=== PATIENT | male | born 1960 | race Caucasian/White ===

== ENCOUNTER 2016-11-03 08:26 | Emergency (ER) | payer OTHER ==
[~2016-11-03] VITALS: Ht 170.2 cm; Wt 68.2 kg
[2016-11-03 08:38] VITALS: BP 142/76
[2016-11-03] MEDS ORDERED: AMLO5TAB2 (08:42)
[2016-11-03] MEDS ORDERED: ASPI81TA85 PO (08:42)
[2016-11-03] MEDS ORDERED: MICA80TA (08:42)
[2016-11-03] MEDS ORDERED: ADACEL/BOOSTRIX VACCINE (DIPHTH/PERTUSS/ACELL/TETANUS)0.5ML SYR (90715) IM ONE (09:30)
[2016-11-03] MEDS ORDERED: KEFL500C17 PO (09:39)
== END 2016-11-03 10:00 | disposition home or self-care (01) ==
LOC: M ED 08:26
DX: T24.131A Burn of first degree of right lower leg, initial encounter (principal); T31.0 Burns involving less than 10% of body surface; X19.XXXA Contact with other heat and hot substances, initial encounter; Y92.89 Other specified places as the place of occurrence of the external cause; Y93.9 Activity, unspecified; Y99.8 Other external cause status; I10 Essential (primary) hypertension; Z87.891 Personal history of nicotine dependence

== ENCOUNTER → 2017-07-04 | Outpatient (CLI) | payer OTHER | LOC: M RAD 08:30 | DX: R06.00 Dyspnea, unspecified (principal) ==

== ENCOUNTER → 2017-08-28 | Outpatient (CLI) | payer OTHER ==
[~2017-08-28] MED LIST: E-Z-GAS II EFFERVESCENT PACKET (SODIUM BICARB./CITRIC ACID/SIMETHICONE) As Ordered; E-Z-HD 98% w/w 340GM SUSP BTL As Ordered; E-Z-PAQUE 96% w/w SUSP 176GM BTL As Ordered
== END ==
LOC: M RAD 09:58
DX: K21.9 Gastro-esophageal reflux disease without esophagitis (principal)
CPT/HCPCS: 74220

== ENCOUNTER → 2018-07-07 | Outpatient (CLI) | payer OTHER ==
[~2018-07-07] MED LIST changes: +AMLO5TAB6; +ASPI81TA85 PO; -E-Z-GAS II EFFERVESCENT PACKET (SODIUM BICARB./CITRIC ACID/SIMETHICONE) As Ordered; -E-Z-HD 98% w/w 340GM SUSP BTL As Ordered; -E-Z-PAQUE 96% w/w SUSP 176GM BTL As Ordered; +KEFL500C17 PO; +MICA80TA
--- NOTE | 2018-07-07 08:03 | REP ---
Clinical: Lung screening. History nicotine dependence Comparison: 07/04/2017 Technique: Axial low-dose noncontrast images from the thoracic inlet to the upper abdomen using lung screening technique. Findings: The lung francis are well-aerated. No consolidation, significant nodule or mass lesion is appreciated. No pleural effusion/reaction or pneumothorax. Tracheobronchial tree is patent. Mediastinum demonstrates mild atherosclerotic changes of the coronary arteries without cardiomegaly. Impression: Lung-RADS category I. No nodule or suspicious abnormality. Electronically Signed by Pranav Merchant MD 07/07/2018 07:56 A
== END ==
LOC: M RAD 07:30
PROVIDERS: ATTEND Physician Assistant
DX: Z87.891 Personal history of nicotine dependence (principal)

== ENCOUNTER 2019-03-21 23:16 | Emergency (ER) | payer OTHER ==
[~2019-03-21] VITALS: Ht 170.2 cm; Wt 80.9 kg
[2019-03-21] MEDS ORDERED: PANT40TA3 (23:24)
[2019-03-21] MEDS ORDERED: LABE20TAB (23:24)
[2019-03-21] MEDS ORDERED: HYDR25TAB (23:24)
[2019-03-21] MEDS ORDERED: KETOROLAC 60 MG/2 ML VIAL (J1885) IM ONE (23:45)
[2019-03-21] MEDS ORDERED: OSELTAMIVIR PHOSPHATE 75 MG CAP (TAMIFLU) PO ONE (23:45)
[2019-03-22] VITALS: BP 121/66
[2019-03-22] MEDS ORDERED: NS 1,000 ML IV ONE
[2019-03-22 00:11] LABS: BASO # 0.1 10^3/uL (0.0-0.2); BASO % 0.6 % (0.0-1.0); EOS # 0.3 10^3/uL (0.0-0.5); HEMOGLOBIN 13.6 g/dl (13.5-17.5); LYMPH # 2.8 10^3/uL (1.5-5.0); MEAN CORPUSCULAR HEMOGLOBIN 28.4 pg (27.0-33.0); MEAN CORPUSCULAR HGB CONC 33.2 g/dl (32.0-36.5); MEAN CORPUSCULAR VOLUME 85.6 fl (80.0-96.0); MONO % 10.2 % (0.0-5.0); NEUTROPHILS # 5.7 10^3/uL (1.5-8.5); NEUTROPHILS % 57.5 % (36.0-66.0); PLATELET COUNT, AUTOMATED 312 10^3/uL (150-450); RED BLOOD COUNT 4.79 10^6/uL (4.30-6.10); WHITE BLOOD COUNT 9.9 10^3/uL (4.0-10.0)
[2019-03-22 00:27] LABS: ALBUMIN 3.9 GM/DL (3.2-5.2); ALT/SGPT 30 U/L (12-78); BILIRUBIN,DIRECT 0.1 MG/DL (0.0-0.2); BILIRUBIN,TOTAL 0.5 MG/DL (0.2-1.0); BLOOD UREA NITROGEN 15 MG/DL (7-18); CALCIUM LEVEL 8.6 MG/DL (8.5-10.1); CARBON DIOXIDE LEVEL 24 MEQ/L (21-32); CHLORIDE LEVEL 95 MEQ/L (98-107); CREATININE FOR GFR 0.95 MG/DL (0.70-1.30); GLOMERULAR FILTRATION RATE > 60.0 (>56); GLUCOSE, FASTING 110 MG/DL (70-100); LIPASE 84 U/L (73-393); POTASSIUM SERUM 3.5 MEQ/L (3.5-5.1); SODIUM LEVEL 132 MEQ/L (136-145); TOTAL PROTEIN 7.4 GM/DL (6.4-8.2)
[2019-03-22] MEDS ORDERED: ISOVUE-370 76% 100ML VIAL (Q9967) As Ordered ONE (00:44)
[2019-03-22] MEDS ORDERED: MORPHINE 10 MG/ML 1ML VIAL (J2270) IV ONE ×2 (01:15)
--- NOTE | 2019-03-22 01:18 | REPVR ---
PROCEDURE INFORMATION: Exam: CT Lumbar Spine Without Contrast Exam date and time: 03/22/2019 12:55 AM Age: 58 years old Clinical indication: Injury or trauma; Fall; Initial encounter; Blunt trauma (contusions or hematomas); Prior surgery; Surgery date: 6+ months; Surgery type: L4-s1 fusion TECHNIQUE: Imaging protocol: Computed tomography images of the lumbar spine without contrast. Radiation optimization: All CT scans at this facility use at least one of these dose optimization techniques: automated exposure control; mA and/or kV adjustment per patient size (includes targeted exams where dose is matched to clinical indication); or iterative reconstruction. COMPARISON: No relevant prior studies available. FINDINGS: Vertebrae: Prior posterior transpedicular fusion at L4-L5 and L5-S1 with L5-S1 laminectomies. Minor grade 1 and cysts at L5-S1. No compression fracture or bone lesions. Discs/Spinal canal/Neural foramina: Minor grade 1 retrolisthesis with disc space narrowing L3-L4. L4-L5 and L5 disc spaces are fused. Foraminal stenosis at L3-L4. Other bones/joints: Hardware is intact. Soft tissues: Unremarkable. IMPRESSION: 1. No acute fracture or bone lesions. 2. Previous lumbosacral fusion. Electronically signed by: Denton Bobby On 03/22/2019 01:18:01 AM
--- NOTE | 2019-03-22 01:25 | REPVR ---
PROCEDURE INFORMATION: Exam: CT Abdomen And Pelvis With Contrast Exam date and time: 03/22/2019 12:55 AM Age: 58 years old Clinical indication: Injury or trauma; Fall; Initial encounter; Blunt; Generalized; Injury details: Fell down stairs hitting back; Prior surgery; Surgery type: L4-s1 fusion TECHNIQUE: Imaging protocol: Computed tomography of the abdomen and pelvis with intravenous contrast. Radiation optimization: All CT scans at this facility use at least one of these dose optimization techniques: automated exposure control; mA and/or kV adjustment per patient size (includes targeted exams where dose is matched to clinical indication); or iterative reconstruction. Contrast material: ISOVUE 370; Contrast volume: 100 ml; Contrast route: IV; COMPARISON: No relevant prior studies available. FINDINGS: Liver: Normal. No mass. Gallbladder and bile ducts: There has been prior cholecystectomy. mild extrahepatic biliary ductal dilation with common bile duct measuring 11 mm. No obstructing calculus or mass. Pancreas: Normal. No ductal dilation. Spleen: Normal. No splenomegaly. Adrenals: Normal. No mass. Kidneys and ureters: Normal. No hydronephrosis. Stomach and bowel: There is mild colonic diverticulosis without evidence of diverticulitis. The small bowel is unremarkable. Appendix: No evidence of appendicitis. Intraperitoneal space: Unremarkable. No free air. No significant fluid collection. Vasculature: Unremarkable. No abdominal aortic aneurysm. Lymph nodes: Unremarkable. No enlarged lymph nodes. Bladder: Unremarkable as visualized. Reproductive: Unremarkable as visualized. Bones/joints: Changes of prior lumbosacral fusion. There are degenerative changes in the spine and pelvis. No acute fracture. Soft tissues: 3.5 x 12.3 x 8.4 cm subcutaneous hematoma in the left buttock with overlying subcutaneous edema. No contrast extravasation or foreign body in the hematoma. IMPRESSION: 1. Large subcutaneous hematoma in the left buttock. 2. Colonic diverticulosis without evidence of diverticulitis. Electronically signed by: Denton Bobby On 03/22/2019 01:25:18 AM
== END 2019-03-22 01:44 | disposition home or self-care (01) ==
LOC: M ED 23:16
DX: S30.1XXA Contusion of abdominal wall, initial encounter (principal); F10.120 Alcohol abuse with intoxication, uncomplicated; W10.8XXA Fall (on) (from) other stairs and steps, initial encounter; Y92.098 Other place in other non-institutional residence as the place of occurrence of the external cause; I10 Essential (primary) hypertension; K21.9 Gastro-esophageal reflux disease without esophagitis; Z79.899 Other long term (current) drug therapy; Z79.82 Long term (current) use of aspirin; Z98.1 Arthrodesis status
CPT/HCPCS: 72131; 74177; 80048; 80076; 83690; 85025; 96361; 96374; 96376; 99284; G0480; J2270; Q9967

== ENCOUNTER → 2019-04-01 | Outpatient (CLI) | payer OTHER ==
[~2019-04-01] MED LIST changes: +HYDR25TAB; +LABE20TAB; +PANT40TA3
--- NOTE | 2019-04-02 09:15 | REPVR ---
PROCEDURE INFORMATION: Exam: CT Lumbar Spine Without Contrast Exam date and time: 04/01/2019 11:00 AM Age: 58 years old Clinical indication: Low back pain; Additional info: Low back pain and large hematoma TECHNIQUE: Imaging protocol: Computed tomography images of the lumbar spine without contrast. Radiation optimization: All CT scans at this facility use at least one of these dose optimization techniques: automated exposure control; mA and/or kV adjustment per patient size (includes targeted exams where dose is matched to clinical indication); or iterative reconstruction. COMPARISON: CT Spine, lumbar w/o contrast 03/22/2019 12:49 AM FINDINGS: Vertebrae: There are vertical rods and pedicle screws at L4, L5 and S1. There is intervertebral spacer material. There corresponding laminectomy defects at L4/5 and L5/S1. There is 5 mm of grade 1 anterolisthesis of L5 with respect to S1. Normal vertebral body alignment is otherwise preserved. Discs/Spinal canal/Neural foramina: At L2/3, shallow disc bulging and mild facet hypertrophy contribute to mild canal stenosis. There is mild bilateral neural foraminal narrowing. At L3/4, shallow disc bulging and mild to moderate facet hypertrophy contribute to moderate canal stenosis and mild to moderate bilateral neural foraminal narrowing. Soft tissues: There is non-specific edema within the posterior paraspinal subcutaneous fat. IMPRESSION: 1. Changes reflecting L4-S1 fusion. No acute abnormality. 2. Degenerative disc disease and spondylosis. At L3/4, changes contribute to moderate acquired canal stenosis and [id number] bilateral neural foraminal narrowing. Electronically signed by: Paola Barcenas On 04/02/2019 09:15:46 AM
== END ==
LOC: M RAD 10:41
PROVIDERS: ATTEND Family Medicine
DX: M54.5 Low back pain (principal); W19.XXXA Unspecified fall, initial encounter

== ENCOUNTER → 2020-07-24 | Outpatient (CLI) | payer OTHER ==
[~2020-07-24] MED LIST changes: +AMLO1TAB24; -AMLO5TAB6; -ASPI81TA85 PO; +ASPI81TA86 PO; +HYDR-3490; -HYDR25TAB; +PANT40TA29; -PANT40TA3
--- NOTE | 2020-07-24 11:14 | REP ---
INDICATION: NICOTINE DEPENDENCE COMPARISON: 07/22/2019 TECHNIQUE: Axial noncontrast images from the thoracic inlet to the upper abdomen using low-dose lung screening technique (LDCT). FINDINGS: The lung francis are well aerated and relatively symmetric/clear. Minimal apical scarring is again noted and stable. No acute consolidation, suspicious nodule or mass lesion appreciated. Tracheobronchial tree is patent. No effusion. No pneumothorax. IMPRESSION: Lung-RADS category 1. No suspicious nodule or mass lesion. Management recommendations include annual low-dose CT surveillance. <Electronically signed by Pranav Merchant > 07/24/20 1112
== END ==
LOC: M RAD 09:47
PROVIDERS: ATTEND Physician Assistant
DX: Z12.2 Encounter for screening for malignant neoplasm of respiratory organs (principal); Z87.891 Personal history of nicotine dependence

== ENCOUNTER → 2021-08-14 | Outpatient (CLI) | payer OTHER | LOC: M RAD 10:02 | PROVIDERS: ATTEND Physician Assistant | DX: Z87.891 Personal history of nicotine dependence (principal) ==

== ENCOUNTER 2021-12-15 11:10 | Emergency (ER) | payer OTHER ==
[2021-12-15] MEDS ORDERED: AMLO1TAB25 (11:34)
[2021-12-15] MEDS ORDERED: ROSU20TA5 (11:34)
[2021-12-15] MEDS ORDERED: KETOROLAC 30 MG/ML 1ML VIAL IM ONE (13:25)
[2021-12-15] MEDS ORDERED: KETO10TAB PO (14:58)
[2021-12-15] MEDS ORDERED: METH-1164 PO (14:58)
[2021-12-15 15:04] VITALS: BP 144/78
== END 2021-12-15 15:07 | disposition home or self-care (01) ==
LOC: M ED 11:10
DX: M54.42 Lumbago with sciatica, left side (principal); I10 Essential (primary) hypertension; K21.9 Gastro-esophageal reflux disease without esophagitis; J44.9 Chronic obstructive pulmonary disease, unspecified; M43.26 Fusion of spine, lumbar region; M51.36 Other intervertebral disc degeneration, lumbar region; Z79.82 Long term (current) use of aspirin; Z79.899 Other long term (current) drug therapy
CPT/HCPCS: 72110; 96372; 99283; J1885

== ENCOUNTER → 2022-02-13 | Outpatient (CLI) | payer OTHER ==
[~2022-02-13] MED LIST changes: +AMLO1TAB25; +KETO10TAB PO; +METH-1164 PO; +PROHANCE 279.3MG/ML 15ML VIAL As Ordered ONE; +ROSU20TA5
== END ==
LOC: M RAD 12:31
PROVIDERS: ATTEND Pain Medicine Interventional Pain Medicine
DX: M96.1 Postlaminectomy syndrome, not elsewhere classified (principal)

== ENCOUNTER → 2022-09-05 | Outpatient (CLI) | payer OTHER ==
[~2022-09-05] MED LIST changes: -PROHANCE 279.3MG/ML 15ML VIAL As Ordered ONE; -ROSU20TA5; +ROSU20TA61
== END ==
LOC: M RAD 10:37
PROVIDERS: ATTEND Physician Assistant
DX: Z12.2 Encounter for screening for malignant neoplasm of respiratory organs (principal); Z87.891 Personal history of nicotine dependence

== ENCOUNTER 2023-03-03 01:35 | Emergency (ER) | payer OTHER ==
[~2023-03-03] VITALS: Ht 200.7 cm; Wt 79.5 kg
[2023-03-03] MEDS ORDERED: ONDANSETRON 4MG 2ML VIAL IV ONE ×2 (01:50→07:50)
[2023-03-03 03:06] LABS: BASO # 0.1 10^3/uL (0.0-0.2); BASO % 0.4 % (0.0-1.0); EOS # 0.1 10^3/uL (0.0-0.5); EOS % 0.7 % (0.0-3.0); HEMATOCRIT 40.5 % (42.0-52.0); HEMOGLOBIN 13.9 g/dl (13.5-17.5); LYMPH # 1.8 10^3/uL (1.5-5.0); LYMPH % 15.7 % (24.0-44.0); MEAN CORPUSCULAR HEMOGLOBIN 29.2 pg (27.0-33.0); MEAN CORPUSCULAR HGB CONC 34.3 g/dl (32.0-36.5); MEAN CORPUSCULAR VOLUME 85.1 fl (80.0-96.0); MONO # 1.2 10^3/uL (0.0-0.8); MONO % 10.9 % (2.0-8.0); NEUTROPHILS # 8.1 10^3/uL (1.5-8.5); NEUTROPHILS % 71.9 % (36.0-66.0); PLATELET COUNT, AUTOMATED 369 10^3/uL (150-450); RED BLOOD COUNT 4.76 10^6/uL (4.30-6.10); WHITE BLOOD COUNT 11.2 10^3/uL (4.0-10.0)
[2023-03-03] MEDS: MORPHINE 4 MG/ML 1ML VIAL IV PRN ×2 (03:09→04:18)
[2023-03-03 03:38] LABS: LIPASE 65 U/L (12-53)
[2023-03-03 03:41] LABS: ALBUMIN 4.1 G/DL (3.2-5.2); ALKALINE PHOSPHATASE 97 U/L (46-116); ALT/SGPT 142 U/L (7.0-40); AST/SGOT 237 U/L (<34); BILIRUBIN,DIRECT 0.5 MG/DL (<0.4); BILIRUBIN,TOTAL 0.9 MG/DL (0.3-1.2); BLOOD UREA NITROGEN 20 MG/DL (9-23); CALCIUM LEVEL 8.9 MG/DL (8.3-10.6); CARBON DIOXIDE LEVEL 28 MMOL/L (20-31); CHLORIDE LEVEL 97 MMOL/L (98-107); CK-MB VALUE MASS < 1.0 NG/ML (<3.6); CREATININE FOR GFR 0.84 MG/DL (0.70-1.30); GLOMERULAR FILTRATION RATE > 60.0 (>49); GLUCOSE, FASTING 109 MG/DL (74-106); POTASSIUM SERUM 3.2 MMOL/L (3.5-5.1); SODIUM LEVEL 135 MMOL/L (136-145); TOTAL PROTEIN 6.9 G/DL (5.7-8.2)
[2023-03-03 04:07] LABS: CPK CREATINE PHOSPHOKINASE 100 U/L (46-171); ETHYL ALCOHOL (ETHANOL) 0.291 % (0.000-0.010)
[2023-03-03] MEDS ORDERED: ISOVUE-370 76% 100ML VIAL As Ordered ONE (05:47)
[2023-03-03] MEDS ORDERED: MORPHINE 2 MG/ML 1ML VIAL IV PRN (07:50)
[2023-03-03] MEDS ORDERED: NS 1,000 ML IV SCH (07:50)
[2023-03-03] MEDS ORDERED: PANTOPRAZOLE 40MG VIAL IV ONE (08:30)
[2023-03-03] MEDS ORDERED: SUCRALFATE SUSP 1GM/10ML UD PO ONE (08:30)
[2023-03-03 08:40] LABS: AMPHETAMINES LEVEL URINE NEGATIVE (NEGATIVE)
[2023-03-03 08:41] LABS: BARBITURATES URINE NEGATIVE (NEGATIVE); BENZODIAZEPINES URINE NEGATIVE (NEGATIVE); CANNABINOIDS URINE NEGATIVE (NEGATIVE); COCAINE METABOLITE URINE NEGATIVE (NEGATIVE); METHADONE URINE NEGATIVE (NEGATIVE); PHENCYCLIDINE URINE NEGATIVE (NEGATIVE)
[2023-03-03 08:43] LABS: CK-MB VALUE MASS < 1.0 NG/ML (<3.6)
[2023-03-03 08:45] LABS: CPK CREATINE PHOSPHOKINASE 91 U/L (46-171); MB/CK RELATIVE INDEX 1.09 (< OR =4)
[2023-03-03 08:51] LABS: OPIATES URINE POSITIVE (NEGATIVE)
[2023-03-03] MEDS ORDERED: POTASSIUM CHLORIDE 10MEQ SR TABLET PO ONE (09:05)
[2023-03-03] MEDS ORDERED: PROT1TAB2 PO (10:20)
[2023-03-03] MEDS ORDERED: SUCR1SS PO (10:21)
[2023-03-03 11:29] VITALS: BP 110/64; TEMP 98.2; O2SAT 96
== END 2023-03-03 11:32 | disposition home or self-care (01) ==
LOC: EDBD 01:35 → M ED 01:35
DX: K85.90 Acute pancreatitis without necrosis or infection, unspecified (principal); K29.20 Alcoholic gastritis without bleeding; I10 Essential (primary) hypertension; J44.9 Chronic obstructive pulmonary disease, unspecified; Z87.891 Personal history of nicotine dependence; Z79.899 Other long term (current) drug therapy; F10.129 Alcohol abuse with intoxication, unspecified
CPT/HCPCS: 74177; 80048; 80076; 80307; 81001; 81002; 82077; 82550; 82553; 83605; 83690; 84484; 85025; 93005; 93041; 96361; 96374; 96375; 96376; 99285; C9113; J2405; Q9967

== ENCOUNTER → 2023-05-23 | Outpatient (CLI) | payer OTHER ==
[~2023-05-23] MED LIST changes: +PROT1TAB2 PO; +SUCR1SS PO
== END ==
LOC: M SOG 07:55
PROVIDERS: ATTEND Orthopaedic Surgery
DX: M17.12 Unilateral primary osteoarthritis, left knee (principal); M25.462 Effusion, left knee

== ENCOUNTER 2023-06-23 07:57 | Day surgery (SDC) | payer OTHER ==
[~2023-06-23] VITALS: Ht 170.2 cm; Wt 78.7 kg
[2023-06-23] MEDS: NS 1,000 ML IV ONE (06:00)
[~2023-06-23 07:57] MED LIST changes: +ALFU10TA3 PO; +ASPI81CH33 PO; +FLOM0.4C39 PO; +LIDOCAINE 2% 100MG/5ML SDV (FOR ANES.) As Ordered ONE; +NORV5TAB PO; +TIZA10TA PO; +propofoL 200 MG/20 ML VIAL As Ordered ONE
[2023-06-23] MEDS ORDERED: fentaNYL 100 MCG/2 ML INJECTION As Ordered ONE (08:52)
[2023-06-23 09:56] VITALS: TEMP 98
[2023-06-23 10:20] VITALS: BP 130/60; O2SAT 97
== END 2023-06-23 10:31 | disposition home or self-care (01) ==
LOC: M OPP 07:57
PROVIDERS: ATTEND Internal Medicine Gastroenterology
DX: Z12.11 Encounter for screening for malignant neoplasm of colon (principal); K63.5 Polyp of colon; K57.30 Diverticulosis of large intestine without perforation or abscess without bleeding; K22.89 Other specified disease of esophagus; R10.13 Epigastric pain; Z87.891 Personal history of nicotine dependence; I10 Essential (primary) hypertension; Z79.02 Long term (current) use of antithrombotics/antiplatelets; Z79.82 Long term (current) use of aspirin; Z79.84 Long term (current) use of oral hypoglycemic drugs; Z79.899 Other long term (current) drug therapy
CPT/HCPCS: 43239; 45385; 88305; J3010

== ENCOUNTER → 2023-09-08 | Outpatient (CLI) | payer OTHER ==
[~2023-09-08] MED LIST changes: +ALFU10TA23 PO; -ALFU10TA3 PO; -LIDOCAINE 2% 100MG/5ML SDV (FOR ANES.) As Ordered ONE; -propofoL 200 MG/20 ML VIAL As Ordered ONE
== END ==
LOC: M RAD 07:20
PROVIDERS: ATTEND Physician Assistant
DX: Z87.891 Personal history of nicotine dependence (principal)

== ENCOUNTER → 2023-10-16 | Outpatient (CLI) | payer OTHER | LOC: M RAD 09:33 | PROVIDERS: ATTEND Physician Assistant | DX: R91.8 Other nonspecific abnormal finding of lung field (principal) ==

== ENCOUNTER 2023-11-06 10:17 | Day surgery (SDC) | payer OTHER ==
[~2023-11-06] VITALS: Ht 170.2 cm; Wt 78.7 kg
[2023-11-06] MEDS: OFLOXACIN 0.3 % (OCUFLOX) OPTH SOL 5ML OS ONE (06:00)
[~2023-11-06 10:17] MED LIST changes: +AMLO1TAB25 PO; -HYDR-3490; +HYDR-3490 PO; +LABE20TAB PO; +METO1TAB87 PO; +PANT20TA6 PO; +PHENYLEPHRINE 10% OPHTH SOL 5ML OS PRN; -ROSU20TA61; +ROSU20TA61 PO; +TAMS1CAP17 PO; +VITA500T11 PO; +fentaNYL 100 MCG/2 ML INJECTION As Ordered ONE
[2023-11-06] MEDS: PHENYLEPHRINE 2.5% OPHTH SOL 2ML OS SCH (11:57)
[2023-11-06] MEDS: LIDOCAINE 3.5 % 1ML OPHTH TOPICAL GEL OU ONE (11:57)
[2023-11-06] MEDS: TROPICAMIDE 1% OPHTH SOLN 15ML OS SCH (11:57)
[2023-11-06] MEDS: ATROPINE SULFATE 1% OPHTH SOLN 2ML BTL OS SCH (11:57)
[2023-11-06] MEDS ORDERED: MIDAZOLAM INJ 2MG/2ML VIAL As Ordered ONE (12:48)
[2023-11-06] MEDS: LIDOCAINE 1% SDV 5ML VIAL As Ordered ONE (12:53)
[2023-11-06] MEDS: CEFUROXIME 1MG/0.1ML INTRACAMERAL INJ As Ordered ONE (12:53)
[2023-11-06] MEDS: BSS IRRIG/VANCO(10MG)/TOBRA(5MG)/EPINEPH(1:1000-0.5CC)500ML BAG-ORONLY As Ordered ONE (12:53)
[2023-11-06 13:05] VITALS: BP 147/89; TEMP 98.1; O2SAT 97
== END 2023-11-06 13:33 | disposition home or self-care (01) ==
LOC: M SDC 10:17
PROVIDERS: ATTEND Ophthalmology
DX: H25.12 Age-related nuclear cataract, left eye (principal); H57.03 Miosis; I10 Essential (primary) hypertension; E78.00 Pure hypercholesterolemia, unspecified; K21.9 Gastro-esophageal reflux disease without esophagitis; N40.0 Benign prostatic hyperplasia without lower urinary tract symptoms; M54.9 Dorsalgia, unspecified; Z79.899 Other long term (current) drug therapy
CPT/HCPCS: 66982; J0697; J2250; J3010; V2632

== ENCOUNTER 2024-01-22 06:06 | Day surgery (SDC) | payer OTHER ==
[~2024-01-22] VITALS: Ht 170.2 cm; Wt 80.3 kg
[~2024-01-22 06:06] MED LIST changes: +PHENYLEPHRINE 10% OPHTH SOL 5ML OD PRN; -PHENYLEPHRINE 10% OPHTH SOL 5ML OS PRN; -ROSU20TA61 PO; +ROSU20TA86 PO; -fentaNYL 100 MCG/2 ML INJECTION As Ordered ONE
[2024-01-22] MEDS ORDERED: MIDAZOLAM INJ 2MG/2ML VIAL As Ordered ONE (07:16)
[2024-01-22] MEDS ORDERED: fentaNYL 100 MCG/2 ML INJECTION As Ordered ONE (07:17)
[2024-01-22] MEDS: LIDOCAINE 3.5 % 1ML OPHTH TOPICAL GEL OU ONE (07:26)
[2024-01-22] MEDS: OFLOXACIN 0.3 % (OCUFLOX) OPTH SOL 5ML OD ONE (07:26)
[2024-01-22] MEDS: TROPICAMIDE 1% OPHTH SOLN 15ML OD SCH (07:27)
[2024-01-22] MEDS: PHENYLEPHRINE 2.5% OPHTH SOL 2ML OD SCH (07:27)
[2024-01-22] MEDS: ATROPINE SULFATE 1% OPHTH SOLN 2ML BTL OD SCH (07:27)
[2024-01-22] MEDS: POVIDONE-IODINE 5% OPHTH PREP SOL 30ML As Ordered ONE (07:50)
[2024-01-22] MEDS: LIDOCAINE 1% SDV 5ML VIAL As Ordered ONE (07:55)
[2024-01-22] MEDS: BSS IRRIG/VANCO(10MG)/TOBRA(5MG)/EPINEPH(1:1000-0.5CC)500ML BAG-ORONLY As Ordered ONE (07:55)
[2024-01-22] MEDS: CEFUROXIME 1MG/0.1ML INTRACAMERAL INJ As Ordered ONE (07:59)
[2024-01-22 08:13] VITALS: BP 123/66; TEMP 99; O2SAT 98
== END 2024-01-22 08:30 | disposition home or self-care (01) ==
LOC: M SDC 06:06
PROVIDERS: ATTEND Ophthalmology
DX: H25.11 Age-related nuclear cataract, right eye (principal); H57.03 Miosis; I10 Essential (primary) hypertension; E78.00 Pure hypercholesterolemia, unspecified; J44.9 Chronic obstructive pulmonary disease, unspecified; N40.0 Benign prostatic hyperplasia without lower urinary tract symptoms; K76.0 Fatty (change of) liver, not elsewhere classified; K21.9 Gastro-esophageal reflux disease without esophagitis; Z79.899 Other long term (current) drug therapy; Z79.82 Long term (current) use of aspirin; Z87.891 Personal history of nicotine dependence
CPT/HCPCS: 66982; J0697; J2250; J3010; V2632

== ENCOUNTER → 2024-02-20 | Outpatient (CLI) | payer OTHER ==
[~2024-02-20] MED LIST changes: -PHENYLEPHRINE 10% OPHTH SOL 5ML OD PRN
== END ==
LOC: M RAD 08:06
PROVIDERS: ATTEND Physician Assistant Medical
DX: K70.0 Alcoholic fatty liver (principal); R74.01 Elevation of levels of liver transaminase levels; Z90.49 Acquired absence of other specified parts of digestive tract

== ENCOUNTER → 2024-03-19 | Outpatient (CLI) | payer OTHER | LOC: M SOG 07:57 | PROVIDERS: ATTEND Orthopaedic Surgery | DX: M25.562 Pain in left knee (principal); M17.12 Unilateral primary osteoarthritis, left knee ==

== ENCOUNTER 2024-04-16 06:07 | Emergency (ER) | payer OTHER ==
[~2024-04-16] VITALS: Ht 170.2 cm; Wt 82.6 kg
[2024-04-16 07:10] LABS: BLOOD UREA NITROGEN 16 MG/DL (9-23); CALCIUM LEVEL 9.4 MG/DL (8.3-10.6); CARBON DIOXIDE LEVEL 25 MMOL/L (20-31); CHLORIDE LEVEL 102 MMOL/L (98-107); CK-MB VALUE MASS < 1.0 NG/ML (<3.6); CREATININE FOR GFR 0.78 MG/DL (0.70-1.30); GLOMERULAR FILTRATION RATE > 60.0 (>49); GLUCOSE, FASTING 93 MG/DL (74-106); SODIUM LEVEL 140 MMOL/L (136-145)
[2024-04-16 07:12] LABS: CPK CREATINE PHOSPHOKINASE 113 U/L (46-171); MB/CK RELATIVE INDEX 0.88 (< OR =4)
[2024-04-16 07:30] LABS: BASO # 0.1 10^3/uL (0.0-0.2); BASO % 0.6 % (0.0-1.0); EOS # 0.3 10^3/uL (0.0-0.5); EOS % 3.6 % (0.0-3.0); HEMATOCRIT 44.7 % (42.0-52.0); HEMOGLOBIN 14.7 g/dl (13.5-17.5); LYMPH # 2.6 10^3/uL (1.5-5.0); LYMPH % 29.2 % (24.0-44.0); MEAN CORPUSCULAR HEMOGLOBIN 28.2 pg (27.0-33.0); MEAN CORPUSCULAR HGB CONC 32.9 g/dl (32.0-36.5); MEAN CORPUSCULAR VOLUME 85.6 fl (80.0-96.0); MONO % 11.1 % (2.0-8.0); NEUTROPHILS # 4.9 10^3/uL (1.5-8.5); NEUTROPHILS % 55.3 % (36.0-66.0); PLATELET COUNT, AUTOMATED 252 10^3/uL (150-450); RED BLOOD COUNT 5.22 10^6/uL (4.30-6.10); WHITE BLOOD COUNT 8.9 10^3/uL (4.0-10.0)
[2024-04-16] MEDS ORDERED: ISOVUE-370 76% 100ML VIAL As Ordered ONE (07:40)
[2024-04-16 08:05] LABS: CK-MB VALUE MASS 1.5 NG/ML (<3.6)
[2024-04-16 08:06] LABS: MB/CK RELATIVE INDEX 1.57 (< OR =4)
[2024-04-16 09:15] VITALS: BP 114/65; O2SAT 96
[2024-04-16 09:26] VITALS: TEMP 98.6
== END 2024-04-16 09:29 | disposition home or self-care (01) ==
LOC: M ED 06:07
DX: R07.89 Other chest pain (principal); R91.1 Solitary pulmonary nodule; I10 Essential (primary) hypertension; J44.9 Chronic obstructive pulmonary disease, unspecified; K21.9 Gastro-esophageal reflux disease without esophagitis; F90.9 Attention-deficit hyperactivity disorder, unspecified type; N40.0 Benign prostatic hyperplasia without lower urinary tract symptoms; Z87.891 Personal history of nicotine dependence; Z79.1 Long term (current) use of non-steroidal anti-inflammatories (NSAID); Z79.899 Other long term (current) drug therapy
CPT/HCPCS: 36415; 71045; 71275; 80048; 82550; 82553; 84484; 85025; 93005; 93041; 94760; 99285; Q9967

== ENCOUNTER → 2024-04-26 | Outpatient (CLI) | payer OTHER | LOC: M PLARAD 09:38 | PROVIDERS: ATTEND Internal Medicine | DX: J98.4 Other disorders of lung (principal) | CPT/HCPCS: 78815; A9552 ==

== ENCOUNTER → 2024-05-06 | Outpatient (CLI) | payer OTHER ==
[~2024-05-06] MED LIST changes: +ISOVUE-370 76% 100ML VIAL ONE
== END ==
LOC: M PLAIMG 07:27
PROVIDERS: ATTEND Internal Medicine
DX: I89.0 Lymphedema, not elsewhere classified (principal)

== ENCOUNTER → 2024-05-07 | Outpatient (CLI) | payer OTHER ==
[~2024-05-07] MED LIST changes: -ISOVUE-370 76% 100ML VIAL ONE
== END ==
LOC: M PLARAD 07:33
PROVIDERS: ATTEND Pain Medicine Interventional Pain Medicine
DX: M96.1 Postlaminectomy syndrome, not elsewhere classified (principal)

== ENCOUNTER → 2024-05-13 | Outpatient (CLI) | payer OTHER ==
[~2024-05-13] MED LIST changes: +LIDOCAINE 1% MDV 20ML VIAL As Ordered ONE
[2024-05-13 13:40] VITALS: BP 146/73; TEMP 98.6; O2SAT 97
== END ==
LOC: M IRPRO 13:23
PROVIDERS: ATTEND Internal Medicine
DX: R59.0 Localized enlarged lymph nodes (principal); C77.0 Secondary and unspecified malignant neoplasm of lymph nodes of head, face and neck

== ENCOUNTER → 2024-06-01 | Outpatient (CLI) | payer OTHER ==
[~2024-06-01] MED LIST changes: +CALC-356; +CLON-412; +EZET10TA21; +FURO20TA2; -LIDOCAINE 1% MDV 20ML VIAL As Ordered ONE; +NITR0.3S4; +POTA-151
== END ==
LOC: M ONCR 12:34
PROVIDERS: ATTEND General Practice
DX: C09.0 Malignant neoplasm of tonsillar fossa (principal); Z87.891 Personal history of nicotine dependence; Z80.8 Family history of malignant neoplasm of other organs or systems; Z90.49 Acquired absence of other specified parts of digestive tract; Z79.82 Long term (current) use of aspirin; Z79.899 Other long term (current) drug therapy
CPT/HCPCS: 31575; G0463

== ENCOUNTER → 2024-06-30 | Outpatient (RCR) | payer OTHER ==
[~2024-06-30] MED LIST changes: -CALC-356; +CALC-356 PO; -CLON-412; +CLON-412 PO; -EZET10TA21; +EZET10TA21 PO; -FLOM0.4C39 PO; +FLUTISP; -FURO20TA2; +FURO20TA2 PO; -NITR0.3S4; +NITR0.3S4 SL; -POTA-151; +POTA-151 PO; +ROSU40TA81 PO; +TAMS-18 PO
== END ==
LOC: M ONCR 06-14 10:32
PROVIDERS: ATTEND General Practice
DX: Z51.0 Encounter for antineoplastic radiation therapy (principal); C09.0 Malignant neoplasm of tonsillar fossa

== ENCOUNTER → 2024-10-27 | Outpatient (CLI) | payer OTHER ==
[~2024-10-27] MED LIST changes: +CLOB0.0548 TOP; +LIDO15SO8 PO; +ONDA-282 PO; +OXYC-673 PO; +OXYC1SOL3 PO; +PRED50TA57 PO
[2024-10-27 12:11] LABS: BASO # 0.0 10^3/uL (0.0-0.2); BASO % 0.4 % (0.0-1.0); EOS # 0.1 10^3/uL (0.0-0.5); EOS % 1.8 % (0.0-3.0); LYMPH # 1.0 10^3/uL (1.5-5.0); LYMPH % 22.9 % (24.0-44.0); MONO # 0.6 10^3/uL (0.0-0.8); MONO % 13.4 % (2.0-8.0); NEUTROPHILS # 2.8 10^3/uL (1.5-8.5); NEUTROPHILS % 61.1 % (36.0-66.0); PLATELET COUNT, AUTOMATED 194 10^3/uL (150-450)
[2024-10-27 12:23] LABS: ALT/SGPT 54 U/L (7.0-40); AST/SGOT 53 U/L (<34); CALCIUM LEVEL 9.2 MG/DL (8.3-10.6); CARBON DIOXIDE LEVEL 28 MMOL/L (20-31); CHLORIDE LEVEL 105 MMOL/L (98-107); CREATININE FOR GFR 0.70 MG/DL (0.70-1.30); GLOMERULAR FILTRATION RATE > 90.0 (>49); POTASSIUM SERUM 4.4 MMOL/L (3.5-5.1); SODIUM LEVEL 143 MMOL/L (136-145)
== END ==
LOC: M WUC 08:13
PROVIDERS: ATTEND Internal Medicine Medical Oncology
DX: C44.42 Squamous cell carcinoma of skin of scalp and neck (principal)

== ENCOUNTER → 2024-11-15 | Outpatient (CLI) | payer OTHER ==
[~2024-11-15] MED LIST changes: -EZET10TA21 PO; +EZET10TA57 PO
== END ==
LOC: M PLARAD 13:22
PROVIDERS: ATTEND General Practice
DX: C09.0 Malignant neoplasm of tonsillar fossa (principal)
CPT/HCPCS: 78815; A9552

== ENCOUNTER → 2024-11-17 | Outpatient (CLI) | payer OTHER | LOC: M ONCR 14:15 | PROVIDERS: ATTEND General Practice | DX: C09.0 Malignant neoplasm of tonsillar fossa (principal); Z87.891 Personal history of nicotine dependence; Z92.3 Personal history of irradiation; Z72.89 Other problems related to lifestyle; Z79.51 Long term (current) use of inhaled steroids; Z79.82 Long term (current) use of aspirin; Z79.899 Other long term (current) drug therapy | CPT/HCPCS: 31575; G0463 ==

== ENCOUNTER → 2024-12-15 | Outpatient (CLI) | payer OTHER | LOC: M OUTALCOH 07:09 | PROVIDERS: ATTEND Psychiatry & Neurology Psychiatry | DX: Z03.89 Encounter for observation for other suspected diseases and conditions ruled out (principal) ==

== ENCOUNTER → 2024-12-17 | Outpatient (CLI) | payer OTHER | LOC: M SOG 07:26 | PROVIDERS: ATTEND Orthopaedic Surgery | DX: M17.12 Unilateral primary osteoarthritis, left knee (principal) ==

== ENCOUNTER 2024-12-28 16:00 | Outpatient (RCR) | payer OTHER | END 2024-12-31 | LOC: M OUTALCOH 16:00 | PROVIDERS: ATTEND Psychiatry & Neurology Psychiatry | DX: F10.10 Alcohol abuse, uncomplicated (principal) ==

== ENCOUNTER 2025-01-26 14:47 | Outpatient (RCR) | payer OTHER ==
[~2025-01-26 14:47] MED LIST changes: +TELM1TAB33 PO
== END 2025-01-30 ==
LOC: M OUTALCOH 14:47
PROVIDERS: ATTEND Psychiatry & Neurology Psychiatry
DX: F10.10 Alcohol abuse, uncomplicated (principal)

== ENCOUNTER 2025-02-15 17:47 | Emergency (ER) | payer OTHER ==
[~2025-02-15] VITALS: Ht 185.4 cm; Wt 73.2 kg
[2025-02-15] MEDS: PROPARACAINE 0.5% OPHTH SOL 15ML OD ONE (20:36)
[2025-02-15 20:54] VITALS: BP 149/67; TEMP 97.3; O2SAT 99
== END 2025-02-15 20:57 | disposition home or self-care (01) ==
LOC: M ED 17:47
DX: H43.391 Other vitreous opacities, right eye (principal); I10 Essential (primary) hypertension; J44.9 Chronic obstructive pulmonary disease, unspecified; F17.210 Nicotine dependence, cigarettes, uncomplicated; Z79.899 Other long term (current) drug therapy; Z79.1 Long term (current) use of non-steroidal anti-inflammatories (NSAID)

== ENCOUNTER → 2025-02-16 | Outpatient (CLI) | payer OTHER ==
[2025-02-16 16:16] LABS: FREE T4 1.29 NG/DL (0.89-1.76)
== END ==
LOC: M ONCR 14:42
PROVIDERS: ATTEND General Practice
DX: Z08 Encounter for follow-up examination after completed treatment for malignant neoplasm (principal); Z85.818 Personal history of malignant neoplasm of other sites of lip, oral cavity, and pharynx; Z87.891 Personal history of nicotine dependence; Z92.3 Personal history of irradiation; Z72.89 Other problems related to lifestyle; Z79.82 Long term (current) use of aspirin; Z79.899 Other long term (current) drug therapy
CPT/HCPCS: 36415; 84439; 84443; G0463

== ENCOUNTER 2025-02-25 09:44 | Outpatient (RCR) | payer OTHER | END 2025-03-02 | LOC: M OUTALCOH 09:44 | PROVIDERS: ATTEND Psychiatry & Neurology Psychiatry | DX: F10.10 Alcohol abuse, uncomplicated (principal) ==